=== PATIENT | female | born 1970 | race Caucasian/White ===

== ENCOUNTER 2021-09-10 18:40 | Inpatient (IN) | payer OTHER ==
[2021-09-10] MEDS ORDERED: chlordiazePOXIDE HCl 25 MG CAP ONE (19:57)
[2021-09-10] MEDS ORDERED: Lorazepam 2 MG/ML VIAL ONE (19:57)
[2021-09-10] MEDS ORDERED: Folic Acid 1 MG, Multivitamins, Adult 10 ML in Dextrose 5 %-0.45 % NaCl 1,000 ML IV SCH (20:00)
[2021-09-10] MEDS ORDERED: Thiamine HCl 200 MG/2 ML VIAL SLOW IVP SCH (20:00)
[2021-09-10 20:01] LABS: #Basophils 0.1 10x3/uL (0.0-0.2); #Monocytes 0.8 10x3/uL (0.0-1.1); #Neutrophils 6.9 10x3/uL (1.5-8.4); %Eosinophils 0.1 % (0.0-6.0); %Lymphocytes 21.9 % (18.0-47.0); %Monocytes 7.9 % (0.0-10.0); %Neutrophils 68.7 % (40.0-75.0); Hemoglobin 15.7 g/dL (12.0-15.5); Mean Corpuscular HGB CONC 34.5 g/dL (32.0-36.0); Mean Corpuscular Hemoglobin 32.5 pg (27.0-33.0); Mean Corpuscular Volume 94.2 fl (81.6-98.3); Mean Platelet Volume 9.2 fl (7.4-10.4); Platelet Count 335 10x3/uL (150-450); RBC Distribution Width 13.6 % (11.5-14.5); Red Blood Cell (RBC) Count 4.83 10x6/uL (3.90-5.03); White Blood Cell (WBC) Count 10.1 10x3/uL (3.5-10.5)
[2021-09-10 20:15] LABS: Acetaminophen Less than 10.0 mcg/mL (10.0-30.0); Alcohol Less than 10 mg/dL (Less than 10); Salicylate Less than 8.0 mg/dL (15.0-30.0)
[2021-09-10 20:18] LABS: ALT (SGPT) 33 U/L (8-55); AST (SGOT) 36 U/L (5-34); Albumin 4.8 g/dL (3.5-5.0); Alkaline Phosphatase 102 U/L (40-110); Anion Gap 22 mmol/L (10-20); BUN (Urea Nitrogen) 12 mg/dL (9.8-20.1); Calc. Creatinine Clearance 0 mL/min (70-130); Calcium 9.3 mg/dL (7.8-10.44); Carbon Dioxide 18 mmol/L (22-29); Chloride 100 mmol/L (98-107); Globulin 2.6 g/dL (2.4-3.5); Glucose 119 mg/dL (70-105); Magnesium 2.2 mg/dL (1.6-2.6); Potassium 3.6 mmol/L (3.5-5.1); Protein, Total 7.4 g/dL (6.0-8.3); Sodium 136 mmol/L (136-145)
[2021-09-10 22:01] LABS: Bilirubin Neg (Negative); Blood, Urine Negative (Negative); Clarity Clear (Clear); Glucose, Urine (Dipstick) Normal (Negative); Ketone, Urine Negative (Negative); Leukocyte 25 (Negative); Nitrite Negative (Negative); Protein, Urine (Dipstick) Negative (Neg-Trace); Urobilinogen Normal mg/dL (Less than 2); pH, Urine 6.5 (5.0-9.0)
[2021-09-10 22:09] LABS: Amphetamine Not Detected (NotDetected); Barbiturates Screen Not Detected (NotDetected); Benzodiazepine Screen Not Detected (NotDetected); Cocaine Metabolite Screen Not Detected (NotDetected); Methadone Not Detected (NotDetected); Methamphetamine Not Detected (NotDetected); Opiate Screen Not Detected (NotDetected); Oxycodone Screen Not Detected (NotDetected); Phencyclidine (PCP) Not Detected (NotDetected); THC/Cannabinoid Screen Detected (NotDetected); Tricyclic Screen Not Detected (NotDetected)
[2021-09-10 22:10] LABS: Bacteria/HPF Rare-Few HPF (None Seen); Mucous/LPF None Seen LPF (<2+); RBC/HPF 0-3 HPF (0-3); Squamous Epithelial 0-3 HPF (0-3); WBC/HPF 0-3 HPF (0-3)
[2021-09-10] MEDS ORDERED: Ondansetron PF 4 MG/2 ML Vial IVP PRN (22:15)
[2021-09-10] MEDS ORDERED: Guaifenesin DM 100-10/5 ML UDCUP PO PRN (22:15)
[2021-09-10] MEDS ORDERED: Calcium Carbonate 500 MG ChewTAB PO PRN (22:15)
[2021-09-10] MEDS ORDERED: Acetaminophen 325 MG TAB PO PRN (22:15)
[2021-09-10] MEDS ORDERED: Lorazepam 2 MG/ML VIAL SLOW IVP PRN (22:17)
[2021-09-10] MEDS ORDERED: traMADol HCl 50 MG TAB PO PRN (22:17)
[2021-09-10 22:49] VITALS: BMI 38.7
[2021-09-10] MEDS ORDERED: Potassium Chloride 20 MEQ TAB PO SCH (23:00)
[2021-09-11] MEDS ORDERED: diphenhydrAMINE 25 MG CAP PO PRN (00:21)
[2021-09-11] MEDS: Lorazepam 2 MG/ML VIAL SLOW IVP SCH ×3 (00:50→08:48)
[2021-09-11] MEDS: Lactated Ringer's 1,000 ML IV SCH ×4 (04:13→22:30)
[2021-09-11 04:34] LABS: PTT 25.7 sec (22.0-33.0); Prothrombin Time 10.5 sec (9.5-12.1)
[2021-09-11 04:37] LABS: Anion Gap 13 mmol/L (10-20); BUN (Urea Nitrogen) 14 mg/dL (9.8-20.1); Calc. Creatinine Clearance 136 mL/min (70-130); Carbon Dioxide 25 mmol/L (22-29); Chloride 107 mmol/L (98-107); Potassium 3.7 mmol/L (3.5-5.1); Sodium 141 mmol/L (136-145)
[2021-09-11 04:38] LABS: ALT (SGPT) 26 U/L (8-55); AST (SGOT) 25 U/L (5-34); Albumin 3.8 g/dL (3.5-5.0); Alkaline Phosphatase 81 U/L (40-110); Bilirubin, Total 2.1 mg/dL (0.2-1.2); CK (CPK) 80 U/L (29-168); Calcium 8.9 mg/dL (7.8-10.44); Cardiac Risk 3.3 (Less than 4.5); Cholesterol 188 mg/dl (< 200 Desired); Globulin 2.3 g/dL (2.4-3.5); Glucose 102 mg/dL (70-105); HDL Cholesterol 57 mg/dL (>60 Neg Risk); LDL Cholesterol, Calculated 90 mg/dL; Magnesium 2.3 mg/dL (1.6-2.6); Phosphorus 2.9 mg/dL (2.3-4.7); Protein, Total 6.1 g/dL (6.0-8.3); Triglycerides 203 mg/dL (Less than 150)
[2021-09-11 04:51] LABS: #Basophils 0.1 10x3/uL (0.0-0.2); #Eosinphils 0.1 10x3/uL (0.0-0.5); #Monocytes 0.9 10x3/uL (0.0-1.1); #Neutrophils 4.3 10x3/uL (1.5-8.4); %Basophils 1.1 % (0.0-2.0); %Eosinophils 0.7 % (0.0-6.0); %Lymphocytes 37.2 % (18.0-47.0); %Neutrophils 50.6 % (40.0-75.0); Hemoglobin 13.3 g/dL (12.0-15.5); Mean Corpuscular HGB CONC 34.1 g/dL (32.0-36.0); Mean Corpuscular Hemoglobin 32.9 pg (27.0-33.0); Mean Corpuscular Volume 96.5 fl (81.6-98.3); Mean Platelet Volume 9.5 fl (7.4-10.4); Platelet Count 274 10x3/uL (150-450); RBC Distribution Width 13.9 % (11.5-14.5); Red Blood Cell (RBC) Count 4.04 10x6/uL (3.90-5.03); White Blood Cell (WBC) Count 8.6 10x3/uL (3.5-10.5)
[2021-09-11] MEDS: Multivitamin W/ Minerals 1 TAB PO SCH (09:01)
[2021-09-11] MEDS: Folic Acid 1 MG TAB PO SCH (09:02)
[2021-09-11] MEDS: Enoxaparin Sodium 40 MG/0.4 ML SYRINGE SC SCH (09:03)
[2021-09-11] MEDS: Famotidine/PF 20 mg/2ml Vial SLOW IVP SCH ×2 (09:04→20:02)
[2021-09-11] MEDS: Thiamine 100 MG TAB PO SCH (09:04)
[2021-09-11 15:45] LABS: SARS-CoV-2 PCR by NAA Not Detected (NotDetected)
[2021-09-12] MEDS: Enoxaparin Sodium 40 MG/0.4 ML SYRINGE SC SCH (09:22)
[2021-09-12] MEDS: Famotidine/PF 20 mg/2ml Vial SLOW IVP SCH (09:22)
[2021-09-12] MEDS: Folic Acid 1 MG TAB PO SCH (09:23)
[2021-09-12] MEDS: Multivitamin W/ Minerals 1 TAB PO SCH (09:23)
[2021-09-12] MEDS: Thiamine 100 MG TAB PO SCH (09:23)
[2021-09-12] MEDS: Lactated Ringer's 1,000 ML IV SCH (09:24)
[2021-09-12 11:56] VITALS: BP 129/50; TEMP 96.7
== END 2021-09-12 14:06 | disposition home or self-care (01) | DRG 897 ==
LOC: CSHERS 18:40 → CSHTELE 22:45
PROVIDERS: ADMIT Student in an Organized Health Care Education/Training Program; ATTEND Emergency Medicine
DX: F10.139 Alcohol abuse with withdrawal, unspecified (principal); R65.10 Systemic inflammatory response syndrome (SIRS) of non-infectious origin without acute organ dysfunction; E87.2 Acidosis; Z20.822 Contact with and (suspected) exposure to COVID-19; F41.9 Anxiety disorder, unspecified; E80.6 Other disorders of bilirubin metabolism; F31.9 Bipolar disorder, unspecified; F43.10 Post-traumatic stress disorder, unspecified; G89.29 Other chronic pain; M54.30 Sciatica, unspecified side; M47.9 Spondylosis, unspecified; Z60.2 Problems related to living alone; F12.10 Cannabis abuse, uncomplicated; Z98.84 Bariatric surgery status; Z90.89 Acquired absence of other organs; Z87.891 Personal history of nicotine dependence; Z88.8 Allergy status to other drugs, medicaments and biological substances
CPT/HCPCS: 36415; 71045; 76705; 80053; 80061; 80306; 80307; 81003; 81015; 82550; 83735; 83880; 84100; 84443; 84484; 85025; 85610; 85730; 93005; 96365; 96366; 96375; J1650; J2060; J3411; J7042; J7120; S0028; U0003; U0005

== ENCOUNTER 2023-05-25 04:13 | Emergency (ER) | payer OTHER ==
[2023-05-25] MEDS ORDERED: Lorazepam 2 MG/ML VIAL ONE (04:45)
[2023-05-25] MEDS ORDERED: Lidocaine 2% Viscous Solution 10 ML, Aluminum & Magnesium Hydroxide 30 ML SSW SCH (05:00)
== END 2023-05-25 07:00 | disposition home or self-care (01) ==
LOC: CSHERS 04:13
DX: F41.0 Panic disorder [episodic paroxysmal anxiety] (principal); R13.10 Dysphagia, unspecified
CPT/HCPCS: 96374; J2060